=== PATIENT | male | born 1995 | race Hispanic/Latino ===

== ENCOUNTER 2023-02-03 02:16 | Emergency (ER) | payer MEDICAID ==
[~2023-02-03] VITALS: Ht 167.6 cm; Wt 73.9 kg
[~2023-02-03 02:16] MED LIST: ACET-2079 PO; AMIL5TAB8 PO; ESCI20TA38 PO; INSLAN SQ; INSU100I22 SQ; INSU100I3 SQ; METO25 PO; Magnesium Chloride PO
[2023-02-03 02:18] VITALS: BP 115/80
== END 2023-02-03 05:00 | disposition left against medical advice (07) ==
LOC: EDH 02:16
DX: R31.9 Hematuria, unspecified (principal); Z53.21 Procedure and treatment not carried out due to patient leaving prior to being seen by health care provider
CPT/HCPCS: 99281